=== PATIENT | female | born 1975 | race African-American/Black ===

== ENCOUNTER 2021-04-13 17:04 | Emergency (ER) | payer OTHER ==
[~2021-04-13] VITALS: Ht 172.7 cm; Wt 65.8 kg
[2021-04-13] MEDS ORDERED: ONDA4TAB5 GT (19:00)
[2021-04-13] MEDS ORDERED: OXYC-128 PO (19:00)
--- NOTE | 2021-04-13 19:15 | NUR ---
Patient was seen by Dr Johnson. DC, Rx (including all Percocet precautions) given and explained to patient who state she understands all instructions.
== END 2021-04-13 19:16 | disposition home or self-care (01) ==
LOC: ER 17:09
DX: Z04.1 Encounter for examination and observation following transport accident (principal); R51.9 Headache, unspecified
CPT/HCPCS: A4663

== ENCOUNTER 2023-01-19 00:04 | Emergency (ER) | payer OTHER ==
[~2023-01-19] VITALS: Ht 175.3 cm; Wt 63.5 kg
[~2023-01-19 00:04] MED LIST: ONDA4TAB5 GT; OXYC-128 PO
[2023-01-19 00:19] VITALS: O2SAT 99
[2023-01-19] MEDS ORDERED: ACET1TAB23 PO (01:20)
[2023-01-19] MEDS ORDERED: ACETAMINOPHEN/CODEINE 300-30 MG TABLET ONE (01:35)
[2023-01-19] MEDS ORDERED: ACETAMINOPHEN/CODEINE 300-30 MG TABLET PO ONE (01:45)
[2023-01-19] MEDS ORDERED: HYDR-3980 PO (01:57)
== END 2023-01-19 01:12 | disposition home or self-care (01) ==
LOC: ER 00:11
DX: M94.0 Chondrocostal junction syndrome [Tietze] (principal); R07.89 Other chest pain; Z79.899 Other long term (current) drug therapy
CPT/HCPCS: 71045; A4606; A4663

== ENCOUNTER 2024-03-26 19:00 | Emergency (ER) | payer OTHER ==
[~2024-03-26] VITALS: Ht 175.3 cm; Wt 59.0 kg
[~2024-03-26 19:00] MED LIST changes: +HYDR-3980 PO
[2024-03-26] MEDS ORDERED: NEO/5DRO3 LEFTEYE (20:44)
[2024-03-26 20:53] VITALS: BP 122/82; TEMP 98; O2SAT 100
== END 2024-03-26 20:45 | disposition home or self-care (01) ==
LOC: ER 19:04
DX: Z98.890 Other specified postprocedural states (principal)
CPT/HCPCS: A4606; A4663

== ENCOUNTER 2024-06-30 15:58 | Emergency (ER) | payer OTHER ==
[~2024-06-30] VITALS: Ht 175.3 cm; Wt 61.2 kg
[~2024-06-30 15:58] MED LIST changes: +NEO/5DRO3 LEFTEYE
[2024-06-30 17:59] LABS: DIFFERENTIAL COMMENT 0; EOSINOPHILS # (AUTO) 0.1 K/uL (0.0-0.7); HEMOGLOBIN 12.3 g/dL (10.9-14.3); LYMPHOCYTES # (AUTO) 1.1 K/uL (0.8-4.8)
[2024-06-30 18:02] LABS: CALCIUM 9.3 mg/dL (8.5-10.1); CARBON DIOXIDE 32 mmol/L (21-32); CHLORIDE 106 mmol/L (98-107); CREATININE 0.5 mg/dL (0.6-1.3); GLUCOSE 75 mg/dL (74-106); SODIUM SERUM 142 mmol/L (136-145); UREA NITROGEN, BLOOD 9 mg/dL (7-18)
[2024-06-30 18:03] LABS: BASOPHILS % (AUTO) 0.7 % (0.0-2.0); EOSINOPHILS % (AUTO) 3.4 % (0.0-7.0); LYMPHOCYTES % (AUTO) 37.4 % (20.5-51.5); MEAN CORPUSCULAR HEMOGLOBIN 29.6 uug (24.7-32.8); MEAN CORPUSCULAR HGB CONC 33 g/dL (32.3-35.6); MEAN CORPUSCULAR VOLUME 88.9 fL (75.5-95.3); MONOCYTES # (AUTO) 0.4 K/uL (0.1-1.30); MONOCYTES % (AUTO) 11.9 % (0.0-11.0); NEUTROPHILS # (AUTO) 1.4 K/uL (1.8-8.9); NEUTROPHILS % (AUTO) 46.6 % (38.5-71.5); PLATELET COUNT (AUTO) 160 K/uL (179-408); RED BLOOD CELL COUNT(AUTO) 4.17 MIL/uL (3.63-4.92); RED CELL DISTRIBUTION WIDTH 13.8 % (12.3-17.7)
[2024-06-30 18:15] LABS: NT-PRO BNP 56 pg/mL (0-125)
[2024-06-30 18:36] VITALS: BP 119/76; O2SAT 100
== END 2024-06-30 18:37 | disposition home or self-care (01) ==
LOC: ER 16:00
DX: S66.911A Strain of unspecified muscle, fascia and tendon at wrist and hand level, right hand, initial encounter (principal); R07.9 Chest pain, unspecified; X50.9XXA Other and unspecified overexertion or strenuous movements or postures, initial encounter; Y93.89 Activity, other specified; Y92.89 Other specified places as the place of occurrence of the external cause; Y99.8 Other external cause status
CPT/HCPCS: 36415; 73110; 84484; 85025; A4606; A4663

== ENCOUNTER 2024-08-11 19:59 | Emergency (ER) | payer OTHER ==
[~2024-08-11] VITALS: Ht 175.3 cm; Wt 62.6 kg
[2024-08-11 21:35] VITALS: BP 126/82; TEMP 98; O2SAT 98
== END 2024-08-11 21:36 | disposition home or self-care (01) ==
LOC: ER 20:05
DX: M79.672 Pain in left foot (principal); M79.675 Pain in left toe(s); R20.0 Anesthesia of skin
CPT/HCPCS: 73630; A4606; A4663

== ENCOUNTER 2024-12-18 16:17 | Emergency (ER) | payer OTHER ==
[~2024-12-18] VITALS: Ht 175.3 cm; Wt 65.8 kg
[2024-12-18 16:19] VITALS: BP 107/63
[2024-12-18] MEDS ORDERED: NABU-140 PO (17:48)
[2024-12-18 18:28] VITALS: BP 107/63; TEMP 98.2; O2SAT 96
== END 2024-12-18 18:29 | disposition home or self-care (01) ==
LOC: ER 16:17
DX: M54.50 Low back pain, unspecified (principal)
CPT/HCPCS: 72100; 72170; A4606; A4663